=== PATIENT | male | born 1990 | race African-American/Black ===

== ENCOUNTER 2018-09-28 15:23 | Emergency (ER) | payer OTHER ==
[~2018-09-28] VITALS: Ht 172.7 cm; Wt 90.7 kg
[~2018-09-28 15:23] MED LIST: AMOXICILLIN 50500 MG PO; AMOXICILLIN875 MG PO; BACTRIM DS TAB1 EACH PO; CIPRO500 MG PO; CIPROFLOXACIN500 M1 PO; CORTISPORIN OTI10 ML OTIC; DEXEDRINE10 MG PO; DOXYCYCLINE 10100 MG PO; FLEXERIL PO; HYDROCODON-ACE1 EAC7 PO; HYDROCODON-ACE1 EACH PO; HYDROCODONE-AP1 EAC6 PO; IBUPROFEN 800800 M1 PO; IBUPROFEN 800800 MG PO; MEDROLDOSEPACK PO; MOBIC7.5 MG PO; NAPROSYN500 MG PO; NAPROXEN 500MG500 MG PO; NOHOMEMEDICATIONS; NORCO 5-325 TA1 EAC1 PO; NORCO 5-325 TA1 EACH PO; NORFLEX100 MG PO; PENICILLIN V P500 MG PO; PENICILLIN VK250 MG PO; PENICILLIN VK500 MG PO; PREDNISONE50 MG PO; PROAIR HFA8.5 GM INH; TORADOL 10 MG T10 MG PO; ULTRACET TABLE1 EACH PO; ULTRAM 50MG TAB50 MG PO; VALIUM5 MG
[2018-09-28 15:40] LABS: HEMATOCRIT 38.2 % (42.0-52.0); HEMOGLOBIN 12.5 gm/dL (14.0-18.0); MCH 28.6 pg (26.0-34.0); MCHC 32.7 g/dL (28.0-37.0); MCV 87.5 fL (80.0-100.0); MPV 7.7 fl. (7.2-11.1); NUCLEATED RBCS 0 /100WBC; PLATELET COUNT* 306 thou/uL (150-400); RBC 4.37 mil/uL (4.50-6.00); RDW-CV 15.4 % (10.5-14.5); WBC 5.9 thou/uL (4.0-11.0)
[2018-09-28 15:51] LABS: ALBUMIN 3.6 g/dL (3.4-5.0); CALCIUM 8.7 mg/dL (8.5-10.1); CREATININE 1.2 mg/dL (0.6-1.3); POTASSIUM 3.6 mmol/L (3.5-5.1); TOTAL BILIRUBIN 0.3 mg/dL (<0.1-1.0); TOTAL PROTEIN 7.7 g/dL (6.4-8.2)
[2018-09-28 15:54] LABS: ACETAMINOPHEN < 2 ug/mL (10-30); ALCOHOL < 10 mg/dL (<10); SALICYLATE < 2.8 mg/dL (2.8-20.0)
[2018-09-28 16:03] LABS: ABSOLUTE LYMPHOCYTES 3.5 thou/uL (0.8-5.3); ABSOLUTE MONOCYTES 0.2 thou/uL (0.0-1.2); ABSOLUTE NEUTROPHILS 2.2 thou/uL (1.6-8.1); PLATELET ESTIMATE ADEQUATE
[2018-09-28 16:06] VITALS: BP 128/88
--- NOTE | 2018-09-29 12:08 | EKG ---
[place] [address] ELECTROCARDIOGRAM REPORT Name: DOUG SALAZAR Room: [facility]#: [id number] Admission: 09/28/18 Attend Phys: Discharge: 09/28/18 Date of : 88 Report #: [id number] THIS REPORT FOR: //name// [facility] ED Test Date: 2018-09-28 Test Time: 15:25:21 Pat Name: DOUG SALAZAR Department: Room: Gender: M Drawer In [employer]oom: GRACIELA : 1990 Requested By: Jose Black Order Number: [id number] MD: Parveen Irwin Measurements Intervals [place] Rate: 96 P: 33 MA: 154 QRS: 46 QRSD: 99 T: 6 QT: 371 QTc: 469 Interpretive Statements Sinus rhythm Early repolarization Borderline prolonged QT interval Compared to ECG 08/22/2016 23:47:56 Sinus tachycardia no longer present ST (T wave) deviation still present Electronically Signed On 09-29-2018 12:07:39 CDT by Parveen Irwin [email or web address] <ELECTRONICALLY SIGNED> By: Parveen Irwin MD, [facility] 09/29/18 1207 1525 1525 Parveen Irwin MD, FAC /EPI
== END 2018-09-28 16:09 | disposition home or self-care (01) ==
LOC: M.ERS 15:23
PROVIDERS: Family Medicine
DX: T40.1X1A Poisoning by heroin, accidental (unintentional), initial encounter (principal); F17.210 Nicotine dependence, cigarettes, uncomplicated; Z88.2 Allergy status to sulfonamides; Y92.89 Other specified places as the place of occurrence of the external cause

== ENCOUNTER 2019-08-07 00:48 | Emergency (ER) | payer OTHER ==
[~2019-08-07] VITALS: Ht 172.7 cm; Wt 90.7 kg
[2019-08-07] MEDS ORDERED: XANAX 0.5 MG0.5 M1 PO (01:08)
[2019-08-07 01:21] LABS: INFLUENZA A ANTIGEN Negative (Negative); INFLUENZA B ANTIGEN Negative (Negative)
[2019-08-07] MEDS ORDERED: HYDROCODON-ACE1 EAC8 PO (02:43)
[2019-08-07 02:52] VITALS: BP 120/74
== END 2019-08-07 02:54 | disposition home or self-care (01) ==
LOC: M.ERS 00:48
PROVIDERS: Emergency Medicine
DX: B27.90 Infectious mononucleosis, unspecified without complication (principal); J32.0 Chronic maxillary sinusitis; F17.210 Nicotine dependence, cigarettes, uncomplicated; Z88.2 Allergy status to sulfonamides

== ENCOUNTER 2019-11-12 13:37 | Emergency (ER) | payer OTHER ==
[~2019-11-12] VITALS: Ht 172.7 cm; Wt 98.0 kg
[~2019-11-12 13:37] MED LIST changes: +HYDROCODON-ACE1 EAC8 PO; +XANAX 0.5 MG0.5 M1 PO
[2019-11-12 13:45] VITALS: BP 139/70
[2019-11-12] MEDS ORDERED: DOXYCYCLINE 10100 MG PO (14:02)
== END 2019-11-12 14:25 | disposition home or self-care (01) ==
LOC: M.ERS 13:37
DX: T81.49XA Infection following a procedure, other surgical site, initial encounter (principal); L03.114 Cellulitis of left upper limb; L03.113 Cellulitis of right upper limb; L91.0 Hypertrophic scar; F17.210 Nicotine dependence, cigarettes, uncomplicated; F12.10 Cannabis abuse, uncomplicated; Z88.2 Allergy status to sulfonamides

== ENCOUNTER 2020-01-03 20:56 | Emergency (ER) | payer OTHER ==
[~2020-01-03] VITALS: Ht 172.7 cm; Wt 90.7 kg
[2020-01-03] MEDS ORDERED: KEFLEX500 M1 PO (21:57)
[2020-01-03] MEDS ORDERED: NORCO 5-325 TA1 EAC2 PO (21:57)
[2020-01-03] MEDS ORDERED: CLEOCIN HCL300 MG PO (21:57)
[2020-01-03 22:10] VITALS: BP 145/95
== END 2020-01-03 22:10 | disposition home or self-care (01) ==
LOC: M.ERS 20:56
DX: L03.115 Cellulitis of right lower limb (principal); L02.611 Cutaneous abscess of right foot; F17.210 Nicotine dependence, cigarettes, uncomplicated; Z88.1 Allergy status to other antibiotic agents